=== PATIENT | male | born 2000 | race African-American/Black ===

== ENCOUNTER 2020-03-29 01:36 | Emergency (ER) | payer OTHER ==
[~2020-03-29] VITALS: Ht 170.2 cm; Wt 93.2 kg
[2020-03-29] MEDS ORDERED: PERCT PO (01:38)
[2020-03-29] MEDS ORDERED: ONDA-104 PO (01:39)
[2020-03-29] MEDS ORDERED: DOCU-275 PO (01:39)
[2020-03-29] MEDS ORDERED: MAG HYDROX/AL HYDROX/SIMETH ES 30 ML SUSPENSION UDCUP PO ONE (03:30)
[2020-03-29] MEDS ORDERED: FAMOTIDINE 20 MG TABLET PO ONE (03:30)
[2020-03-29 04:17] LABS: ANION GAP 5 mmol/L (8-16); BASOPHILS % (AUTO) 0.6 % (0.0-2.0); CALCIUM, TOTAL 8.5 mg/dL (8.8-10.5); CARBON DIOXIDE 32 mmol/L (22-29); CHLORIDE 104 mmol/L (98-107); CREATININE 1.11 mg/dL (0.60-1.30); EOSINOPHILS % (AUTO) 0.8 % (1.0-6.0); GLOMERULAR FILTR. RATE CALC > 60 mL/min (>60); GLUCOSE,RANDOM 95 mg/dL (70-110); HEMATOCRIT 51.3 % (41-53); HEMOGLOBIN 16.6 g/dL (13.5-17.5); LYMPHOCYTES # (AUTO) 1.7 K/uL (1.0-4.8); LYMPHOCYTES % (AUTO) 27.9 % (22.0-44.0); MEAN CORPUSCULAR HEMOGLOBIN 29.3 pg (26.0-34.0); MEAN CORPUSCULAR HGB CONC 32.4 G/dL (31.0-37.0); MEAN CORPUSCULAR VOLUME 90 fL (80-100); MONOCYTES # (AUTO) 0.6 K/uL (0.1-1.0); MONOCYTES % (AUTO) 9.6 % (2.0-9.0); NEUTROPHILS # (AUTO) 3.7 K/uL (1.8-7.7); NEUTROPHILS % (AUTO) 61.1 % (40.0-70.0); PLATELET COUNT (AUTO) 130 K/uL (150-450); POTASSIUM 4.1 mmol/L (3.5-5.1); RED BLOOD CELL COUNT(AUTO) 5.68 MIL/uL (4.50-5.90); RED CELL DISTRIBUTION WIDTH 13.5 % (11.5-14.5); SODIUM SERUM 141 mmol/L (136-145); UREA NITROGEN, BLOOD 11 mg/dL (7-18)
[2020-03-29 04:23] LABS: ALANINE AMINOTRANSFERASE 25 U/L (12-78); ALBUMIN 3.7 g/dL (3.4-5.0); ALKALINE PHOSPHATASE 79 U/L (46-116); ASPARTATE AMINOTRANSFERASE 16 U/L (15-37); BILIRUBIN,TOTAL 0.2 mg/dL (0.1-1.0); LIPASE 30 U/L (73-393); TOTAL PROTEIN, SERUM 7.4 g/dL (6.4-8.2)
[2020-03-29 04:39] VITALS: BP 163/96
== END 2020-03-29 06:15 | disposition home or self-care (01) ==
LOC: EMS 01:37
DX: K29.70 Gastritis, unspecified, without bleeding (principal); K59.00 Constipation, unspecified; F17.210 Nicotine dependence, cigarettes, uncomplicated; Z79.899 Other long term (current) drug therapy
CPT/HCPCS: 93005

== ENCOUNTER 2020-07-17 20:20 | Emergency (ER) | payer OTHER ==
[~2020-07-17] VITALS: Ht 170.2 cm; Wt 95.5 kg
[~2020-07-17 20:20] MED LIST: DOCU-275 PO; ONDA-104 PO; PERCT PO
[2020-07-17] MEDS ORDERED: TRAZ-257 PO (20:34)
[2020-07-17] MEDS ORDERED: SERT50TA12 PO (20:34)
[2020-07-17] MEDS ORDERED: HYDR-3831 PO (20:34)
[2020-07-17] MEDS ORDERED: CEPHALEXIN MONOHYDRATE 500 MG CAPSULE PO ONE (22:45)
[2020-07-17] MEDS ORDERED: ACETAMINOPHEN 500 MG TABLET PO ONE (22:45)
[2020-07-17] MEDS ORDERED: GuaiFENesin/D-METHORPHAN [SUGAR-FREE] 200-20MG/10 ML SYRUP UDCUP PO ONE (22:45)
[2020-07-17 22:56] LABS: COVID AG,FIA SOURCE NASOPHARYNGEAL
[2020-07-18 00:57] VITALS: BP 129/77
== END 2020-07-18 01:15 | disposition home or self-care (01) ==
LOC: EMS 20:21
DX: J02.9 Acute pharyngitis, unspecified (principal); R07.89 Other chest pain; R05 Cough; F17.210 Nicotine dependence, cigarettes, uncomplicated; Z20.828 Contact with and (suspected) exposure to other viral communicable diseases
CPT/HCPCS: 87426; Z7502; Z7610

== ENCOUNTER 2020-09-26 13:16 | Emergency (ER) | payer OTHER ==
[~2020-09-26] VITALS: Ht 170.2 cm; Wt 95.5 kg
[~2020-09-26 13:16] MED LIST changes: -DOCU-275 PO; +HYDR-3831 PO; -ONDA-104 PO; -PERCT PO; +SERT50TA12 PO; +TRAZ-257 PO
[2020-09-26 13:25] VITALS: BP 134/82
== END 2020-09-26 14:59 | disposition home or self-care (01) ==
LOC: EMS 13:16
DX: Z20.828 Contact with and (suspected) exposure to other viral communicable diseases (principal); F17.210 Nicotine dependence, cigarettes, uncomplicated
CPT/HCPCS: 99283; U0003

== ENCOUNTER 2021-04-19 09:38 | Emergency (ER) | payer OTHER ==
[~2021-04-19] VITALS: Ht 170.2 cm; Wt 95.5 kg
[~2021-04-19 09:38] MED LIST changes: +SERT-158 PO; -SERT50TA12 PO
[2021-04-19] MEDS ORDERED: ACETAMINOPHEN 500 MG TABLET PO ONE (10:30)
[2021-04-19] MEDS ORDERED: KETOROLAC TROMETHAMINE 30 MG/ML VIAL IM ONE (10:30)
[2021-04-19] MEDS ORDERED: LIDOCAINE 5% TRANSDERMAL PATCH TD ONE (10:30)
[2021-04-19 11:06] VITALS: BP 135/65
== END 2021-04-19 11:08 | disposition home or self-care (01) ==
LOC: EMS 09:38
DX: M54.9 Dorsalgia, unspecified (principal); F17.210 Nicotine dependence, cigarettes, uncomplicated; Z88.8 Allergy status to other drugs, medicaments and biological substances; V43.52XA Car driver injured in collision with other type car in traffic accident, initial encounter; Y93.89 Activity, other specified; Y92.488 Other paved roadways as the place of occurrence of the external cause; Y99.8 Other external cause status
CPT/HCPCS: 96372; 99283; J1885

== ENCOUNTER 2021-05-31 23:18 | Emergency (ER) | payer OTHER ==
[~2021-05-31] VITALS: Ht 170.2 cm; Wt 95.5 kg
[2021-05-31 23:33] VITALS: BP 135/83
== END 2021-06-01 02:19 | disposition left against medical advice (07) ==
LOC: EMS 23:22
DX: R53.1 Weakness (principal); Z53.21 Procedure and treatment not carried out due to patient leaving prior to being seen by health care provider